=== PATIENT | male | born 1940 ===

== ENCOUNTER → 2025-01-14 13:22 | Outpatient (ROUT) | payer MEDICARE, SELFPAY ==
[2025-01-14 13:31] LABS: Appearance Urine UA CLEAR; Bilirubin Urine UA NEGATIVE (NEGATIVE); Color Urine UA YELLOW; Glucose Urine UA NEGATIVE (Negative); Ketones Urine UA NEGATIVE (NEGATIVE); Leukocyte Esterase Urine UA 1+ (NEGATIVE); Nitrite Urine UA NEGATIVE (Negative); Occult Blood Urine UA TRACE-INTACT (Negative); Protein Urine UA NEGATIVE (Negative); Specific Gravity Urine UA <=1.005 (1.000-1.035); Urobilinogen Urine UA 1.0 E.U./dL (0.2); pH Urine UA 6.5 (4.5-8.0)
[2025-01-14 13:42] LABS: Culture Indicated Urine Cult Not Indicated
== END ==
PROVIDERS: Family Provider Specialist; PCP Specialist; Visit Provider Hospitalist
DX: R30.0 Dysuria (principal)
CPT/HCPCS: 81001